=== PATIENT | male | born 1935 | race Caucasian/White ===

== ENCOUNTER → 2017-01-31 | Outpatient (REF) | LOC: ZLAB.WCH 14:47 | DX: Z01.89 Encounter for other specified special examinations (principal) ==

== ENCOUNTER → 2017-03-26 | Outpatient (REF) | LOC: ZLAB.WCH 11:31 | DX: Z01.89 Encounter for other specified special examinations (principal) ==

== ENCOUNTER → 2018-02-03 | Outpatient (REF) | LOC: ZLAB.WCH 16:25 | DX: Z01.89 Encounter for other specified special examinations (principal) ==

== ENCOUNTER → 2019-02-06 | Outpatient (REF) ==
[2019-02-06 17:09] LABS: THYROID STIMULATING HORMONE 3.57 uIU/mL (0.465-4.680)
[2019-02-06 17:51] LABS: PSA-TOTAL 6.63 ng/mL (0-4)
== END ==
LOC: ZLAB.WCH 16:16
PROVIDERS: Internal Medicine
DX: Z01.89 Encounter for other specified special examinations (principal)
CPT/HCPCS: G0103

== ENCOUNTER → 2021-03-24 | Outpatient (REF) | LOC: COL.CARD 13:59 | DX: R55 Syncope and collapse (principal) ==